=== PATIENT | female | born 1990 | race Caucasian/White ===

== ENCOUNTER 2022-03-05 08:32 | Emergency (ER) | payer OTHER, SELFPAY ==
[2022-03-05 08:44] VITALS: BP 126/85; PULSE 81; RESP 18; TEMP 36.2; O2SAT 98; BMI 35.0
--- NOTE | 2022-03-05 09:12 | CRLHL7_ITS ---
For Patients: As a result of the Century Cures Act, medical imaging exams and procedure reports are released immediately into your electronic medical record. You may view this report before your referring provider. If you have questions, please contact your health care provider. Indication: Left-sided cervical clavicular and chest pain and pressure Technique: Volumetric multidetector CT images of the chest were obtained after the administration of IV contrast. 95 cc Isovue 370 low osmolar intravenous contrast Comparison: None available. Findings: The thoracic inlet and thyroid gland are unremarkable. The thoracic aorta is nonaneurysmal. There is no central filling defect to suggest pulmonary embolism. There is no mediastinal, hilar or axillary adenopathy. There is mild central bronchial thickening. There is no focal consolidation, effusion or pneumothorax. There is no evidence of pulmonary mass or suspicious pulmonary nodule. The visualized upper abdomen demonstrates moderate hepatomegaly and hepatic steatosis. The thoracic vertebral body heights are grossly maintained with mild straightening of the normal thoracic kyphosis. Impression: Mild central bronchial thickening without evidence of acute cardiopulmonary abnormality. Otherwise grossly intact clavicle and chest wall thoracic structures. Please note that all CT scans at this facility use dose modulation, iterative reconstruction, and/or weight-based dosing when appropriate to reduce radiation dose to as low as reasonably achievable. Dictated by Juan José Disla MD @ 03/05/2022 10:40:33 AM (Electronically Signed)
--- NOTE | 2022-03-05 09:15 | ED.GENADULT ---
HPI - General Adult General Time Seen by Provider: 09:16 Date Seen: 03/05/22 Chief complaint: Chest Pain Stated complaint: Pain on left collarbone/back/chest/tingling on arm Time Seen by Provider: 03/05/22 09:04 Source: patient Mode of arrival: ambulatory Limitations: no limitations History of Present Illness HPI narrative: Patient is a 28 year white female who presents with couple month history of left-sided shoulder clavicular and neck and arm discomfort. 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 She has worked with Dr. Kane yen for [employer] in [place]. She has had an MRI of her shoulder on the left that is unremarkable, and she is also scheduled for a neck MRI scan in the next couple of days. She has tried some Advil that helped her, physical therapy helped her little bit until few days ago she was walking and had increasing pain in her left clavicular area and shoulder some numbness and tingling in her left hand she has also had a little bit in her right hand. She denies any neck pain at this time, fever, chills, neurologic complaints. As mention Advil did help this. She is not , had a recent. She has had a history of radioactive iodine treatment for a nodule that cause thyroid dysfunction she takes Synthroid. She has not tried any medications other than Advil Related Data Home Medications Medication Instructions Recorded Confirmed levothyroxine 112 mcg tablet 112 mcg PO DAILY 03/05/22 03/05/22 (Synthroid) Previous Rx's Medication Instructions Recorded methylprednisolone 4 mg tablets in See Rx Instructions PO .COMPLEX 03/05/22 a dose pack (Medrol (Martin)) #21 ea Allergies Allergy/AdvReac Type Severity Reaction Status Date / Time amoxicillin Allergy Mild Hives Verified 03/05/22 09:46 Review of Systems Status of ROS: Reports: 10 or more systems reviewed and unremarkable except as noted in History and below [facility] PFS Social History Smoking Status: Never smoker Do you use any of these nicotine containing products: None How often do you have a drink containing alcohol: monthly or less How many standard drinks containing alcohol do you have on a typical day: 1 or 2 AUDIT-C Alcohol total score: 1 Non-prescribed substance use: denies use Exam Narrative: Exam Narrative: Objective: Vital signs unremarkable In general patient is alert orient x3 very pleasant noncyanotic Neck is supple Left trapezius muscle shows tenderness as well as some mild muscular tenderness of her lower sternocleidomastoid and supraclavicular areas somewhat full on the left, no palpable nodule Upper extremities show normal strength sensation heart rhythm regular without murmur Chest is clear Abdomen benign Extremities are no edema neurologic nonfocal Peripheral says perfusion is good, skin warm and dry. Palpation of the left upper shoulder and trapezius muscle area and clavicle area cause some mild sensation change but no marked discomfort, but she can notice it is a palpable sensation. Const: Vital Signs, click to edit/add: Vital Signs - 24 hr 03/05/22 08:44 03/05/22 10:52 Temperature 97.2 F L 97.3 F L Pulse Rate [Right Pulse Oximeter] 81 68 Respiratory Rate 18 20 Blood Pressure [Ri ght Upper Arm] 126/85 112/81 Pulse Oximetry 98 97 Oxygen Delivery Me thod Room Air Course Vital Signs Vital signs: Initial Vital Signs Temperature 97.2 F L 03/05/22 08:44 Temperature Source Temporal Artery Scan 03/05/22 08:44 Pulse Rate 81 03/05/22 08:44 Pulse Rhythm 03/05/22 08:44 Respiratory Rate 18 03/05/22 08:44 Blood Pressure 126/85 03/05/22 08:44 Blood Pressure Mean 98 03/05/22 08:44 Blood Pressure Position Sitting 03/05/22 08:44 Pulse Oximetry 98 03/05/22 08:44 Oxygen Delivery Method 03/05/22 08:44 Vital Signs Temperature 97.2 F L 03/05/22 08:44 Pulse Rate 81 03/05/22 08:44 Respiratory Rate 18 03/05/22 08:44 Blood Pressure 126/85 03/05/22 08:44 Pulse Oximetry 98 03/05/22 08:44 Oxygen Delivery Method 03/05/22 08:44 Temperature 97.3 F L 03/05/22 10:52 Pulse Rate 68 03/05/22 10:52 Respiratory Rate 20 03/05/22 10:52 Blood Pressure 112/81 03/05/22 10:52 Pulse Oximetry 97 03/05/22 10:52 Oxygen Delivery Method 03/05/22 08:44 Medical Decision Making [facility] Narrative Medical decision making narrative: Patient has had a prolonged history of left trapezius muscle, clavicular area tenderness and swelling, lower neck strap muscle tenderness. Certainly this could be a musculoskeletal issue, I agree with MRI scan of the neck to make sure there is no nerve root impingement. She has no obvious radicular symptoms at this time other than occasional tingling in her left arm. She does have some muscular tightness in her neck and trapezius area, I think some steroid medication would be helpful, but also because of the area that is tender and swollen I think a CT scan of her chest, repeat thyroid profile, electrolytes labs would be appropriate. Patient agreement the plan. Patient reports she is not , has a vasectomy. Addendum: Patient's CT scan of the chest looks unremarkable, there is no supraclavicular swelling or abnormality by Radiology read. The patient's white count and hemoglobin are normal. ER profile is largely unremarkable., troponin is negative, CRP is negative. TSH is pending. At this point I think a Medrol Dosepak would be appropriate continue the anti-inflammatory continue physical therapy, follow up with primary care doctor the next couple of days. I suspect this is an inflammatory condition the muscles of her neck in upper shoulder girdle. No evidence of cardiac issue. By note EKG shows sinus rhythm no acute ST T wave changes by my read occasional PVC Lab Data Labs: Lab Results 03/05/22 03/05/22 03/05/22 Range/Units 09:25 09:25 09:25 WBC 8.24 (4.50-11.00) K/uL RBC 4.91 (4.00-5.20) m/uL Hgb 13.1 (12.0-16.0) gm/dL Hct 39.4 (33.0-51.0) % MCV 80 (80-100) fL MCH 27 (26-34) pg MCHC 33 (32-36) gm/dL RDW Coeff of [place] 13.0 (11.5-15.5) % Plt Count 285 (140-440) K/uL Neut % (Auto) 66.2 (42.0-72.0) % Lymph % (Auto) 26.0 (20-44) % [place] % (Auto) 4.9 (0.0-11.0) % Eos % (Auto) 2.4 (0.0-7.0) % Baso % (Auto) 0.4 (0.0-3.0) % Neut # (Auto) 5.46 (1.7-7.0) K/uL Lymph # (Auto) 2.14 (0.90-2.90) K/uL [place] # (Auto) 0.40 (0.00-0.90) K/UL Eos # (Auto) 0.20 (0.00-0.50) K/uL Baso # (Auto) 0.03 (0.00-0.30) K/uL Abs Immat Gran (auto) 0.01 (0.00-0.30) K/uL Imm/Tot Granulo (auto) 0.1 % Sodium 137 (135-149) mmol/L Potassium 4.3 (3.6-5.1) mmol/L Chloride 104 (96-114) mmol/L Carbon Dioxide 25 (20-32) mmol/L BUN 9 (5-24) mg/dL Creatinine 0.7 (0.5-1.5) mg/dL Estimated Creat Clear 107.01 Estimated GFR 117 ml/min Glucose 90 (60-115) mg/dL Calcium 8.7 (8.4-10.6) mg/dL Total Bilirubin 0.3 (0.1-1.5) mg/dL Direct Bilirubin 0.1 (0.0-0.5) mg/dL AST 23 (12-35) U/L ALT 22 (4-35) U/L Alkaline Phosphatase 101 (40-150) U/L Troponin I < 0.01 L (0.01-0.04) ng/mL C-Reactive Protein < 0.5 L (0.5-1.0) mg/dL Total Protein 7.2 (6.0-8.3) g/dL Albumin 4.5 (3.3-5.0) g/dL TSH (0.270-4.20) uIU/mL 03/05/22 Range/Units 09:25 WBC (4.50-11.00) K/uL RBC (4.00-5.20) m/uL Hgb (12.0-16.0) gm/dL Hct (33.0-51.0) % MCV (80-100) fL MCH (26-34) pg MCHC (32-36) gm/dL RDW Coeff of [place] (11.5-15.5) % Plt Count (140-440) K/uL Neut % (Auto) (42.0-72.0) % Lymph % (Auto) (20-44) % [place] % (Auto) (0.0-11.0) % Eos % (Auto) (0.0-7.0) % Baso % (Auto) (0.0-3.0) % Neut # (Auto) (1.7-7.0) K/uL Lymph # (Auto) (0.90-2.90) K/uL [place] # (Auto) (0.00-0.90) K/UL Eos # (Auto) (0.00-0.50) K/uL Baso # (Auto) (0.00-0.30) K/uL Abs Immat Gran (auto) (0.00-0.30) K/uL Imm/Tot Granulo (auto) % Sodium (135-149) mmol/L Potassium (3.6-5.1) mmol/L Chloride (96-114) mmol/L Carbon Dioxide (20-32) mmol/L BUN (5-24) mg/dL Creatinine (0.5-1.5) mg/dL Estimated Creat Clear Estimated GFR ml/min Glucose (60-115) mg/dL Calcium (8.4-10.6) mg/dL Total Bilirubin (0.1-1.5) mg/dL Direct Bilirubin (0.0-0.5) mg/dL AST (12-35) U/L ALT (4-35) U/L Alkaline Phosphatase (40-150) U/L Troponin I (0.01-0.04) ng/mL C-Reactive Protein (0.5-1.0) mg/dL Total Protein (6.0-8.3) g/dL Albumin (3.3-5.0) g/dL TSH 1.680 (0.270-4.20) uIU/mL Discharge Plan Discharge Clinical Impression: Chronic shoulder pain Patient Disposition: Home, Self-Care Condition: Stable Additional Instructions: Continue physical therapy, Medrol Dosepak to start tomorrow, continue ibuprofen 600 mg 3 times a day for the next week, follow up with primary care in 2 to 3 days. Activity Level: Light activity Discharge Diet: Regular Prescriptions: New methylprednisolone [Medrol (Martin)] 4 mg tablets,dose pack See Rx Instructions .ROUTE .COMPLEX Qty: 21 0RF Rx Instructions: orally per package directions No Action levothyroxine [Synthroid] 112 mcg tablet 112 mcg PO DAILY Label Comments: TAKE ONE TABLET BY MOUTH EVERY DAY BEFORE BREAKFAST . Stand Alone Forms: [facility] Info Instructions
[2022-03-05 09:31] LABS: Basophils Absolute Auto 0.03 K/uL (0.00-0.30); Basophils Percent Auto 0.4 % (0.0-3.0); Eosinophils Percent Auto 2.4 % (0.0-7.0); Hematocrit 39.4 % (33.0-51.0); Hemoglobin* 13.1 gm/dL (12.0-16.0); Immature Granulocytes Abs Auto 0.01 K/uL (0.00-0.30); Immature Granulocytes Pct Auto 0.1 %; Lymphocytes Absolute Auto 2.14 K/uL (0.90-2.90); Mean Corpuscular HGB Conc 33 gm/dL (32-36); Mean Corpuscular Hemoglobin 27 pg (26-34); Mean Corpuscular Volume 80 fL (80-100); Monocytes Percent Auto 4.9 % (0.0-11.0); Neutrophils Absolute Auto 5.46 K/uL (1.7-7.0); Neutrophils Percent Auto 66.2 % (42.0-72.0); Platelet Count* 285 K/uL (140-440); Red Blood Count 4.91 m/uL (4.00-5.20); White Blood Count* 8.24 K/uL (4.50-11.00)
[2022-03-05 09:35] LABS: Slide Review Reflex No
[2022-03-05] MEDS: METHYLPREDNISOLONE SOD SUCC 62.5 MG/ML (125) 125 MG IVP (09:42)
[2022-03-05 10:20] LABS: Albumin* 4.5 g/dL (3.3-5.0)
[2022-03-05 10:23] LABS: Aspartate Amino Transferase* 23 U/L (12-35); Bilirubin Direct* 0.1 mg/dL (0.0-0.5); Bilirubin Total* 0.3 mg/dL (0.1-1.5); Total Protein* 7.2 g/dL (6.0-8.3)
[2022-03-05 10:24] LABS: Alanine Aminotransferase* 22 U/L (4-35); Alkaline Phosphatase* 101 U/L (40-150)
[2022-03-05 10:29] LABS: Chloride* 104 mmol/L (96-114); Potassium* 4.3 mmol/L (3.6-5.1); Sodium* 137 mmol/L (135-149)
[2022-03-05 10:32] LABS: Creatinine* 0.7 mg/dL (0.5-1.5); Est. Creatinine Clearance* 107.01; Estimated Glomerular Filt Rate 117 ml/min
[2022-03-05 10:33] LABS: Blood Urea Nitrogen* 9 mg/dL (5-24); Calcium* 8.7 mg/dL (8.4-10.6); Carbon Dioxide* 25 mmol/L (20-32); Glucose* 90 mg/dL (60-115)
[2022-03-05 10:38] LABS: C Reactive Protein* < 0.5 mg/dL (0.5-1.0); Troponin I* < 0.01 ng/mL (0.01-0.04)
[2022-03-05 10:52] VITALS: BP 112/81; PULSE 68; RESP 20; TEMP 36.3; O2SAT 97
== END 2022-03-05 10:57 | disposition home or self-care (01) ==
PROVIDERS: Emergency Provider Family Medicine; PCP Family Medicine
DX: M25.512 Pain in left shoulder (principal)
CPT/HCPCS: 36415; 71260; 80048; 80076; 84443; 84484; 85025; 86140; 93005; 96374; 99284; 99285; J2930; Q9967